=== PATIENT | female | born 1965 | race Caucasian/White ===

== ENCOUNTER 2017-05-14 18:41 | Emergency (ER) | payer MEDICAID ==
[~2017-05-14] VITALS: Ht 157.5 cm; Wt 68.0 kg
[2017-05-14 19:25] VITALS: BP 154/95
[2017-05-14] MEDS ORDERED: methylPREDNISolone SOD SUCC 125 MG/2 ML VL IM ONE (22:15)
[2017-05-14] MEDS ORDERED: KETOROLAC TROMETH 60MG/2ML VIAL IM ONE (22:15)
[2017-05-14] MEDS ORDERED: methylPREDNISolone SOD SUCC 125 MG/2 ML VL ONE (22:19)
== END 2017-05-14 23:00 | disposition home or self-care (01) ==
LOC: ER 19:00
DX: M54.16 Radiculopathy, lumbar region (principal); M79.1 Myalgia; F17.210 Nicotine dependence, cigarettes, uncomplicated; Z90.49 Acquired absence of other specified parts of digestive tract
CPT/HCPCS: 96372; 99284; J1885; J2930

== ENCOUNTER 2021-03-02 13:44 | Inpatient (IN) | payer MEDICAID ==
[~2021-03-02] VITALS: Ht 157.5 cm; Wt 89.6 kg
[2021-03-02 14:48] LABS: Basophils # (auto) 0.1 10 ^3/uL (0-0.2); Basophils % (auto) 0.9 % (0.0-2.0); Eosinophils # (auto) 0 10 ^3/uL (0-0.8); Eosinophils % (auto) 0.1 % (0.0-7.0); Hematocrit 49.3 % (36.0-46.0); Hemoglobin 16.7 g/dL (12.2-16.2); Lymphocytes # (auto) 1.8 10 ^3/uL (0.4-5.4); Lymphocytes % (auto) 12.2 % (10.0-50.0); Mean Corpuscular Hemoglobin 29.7 pg (28.0-32.0); Mean Corpuscular Hgb Conc. 33.8 g/dL (32.0-36.0); Mean Corpuscular Volume 87.8 fL (80.0-100.0); Monocytes # (auto) 1.7 10 ^3/uL (0-1.3); Monocytes % (auto) 11.5 % (0.0-12.0); Neutrophils # (auto) 11.3 10 ^3/uL (1.6-8.6); Neutrophils % (auto) 75.3 % (37.0-80.0); Nucleated Red Blood Cells % 0.1 %; Red Blood Cells 5.62 10^6/uL (4.0-5.20); Red Cell Distribution Width 14.7 % (11.8-14.3)
[2021-03-02 15:06] LABS: Anion Gap 9 (5-15); Blood Urea Nitrogen 24 mg/dL (7-18); Calcium 9.4 mg/dL (8.5-10.1); Carbon Dioxide 27 mmol/L (21-32); Chloride 100 mmol/L (98-107); Glucose 100 mg/dL (74-106); Potassium 3.5 mmol/L (3.5-5.1); Sodium 136 mmol/L (136-145)
[2021-03-02 15:13] LABS: Alanine Aminotransferase 19 U/L (13-56); Alkaline Phosphatase 130 U/L (45-117); Aspartate Aminotransferase 18 U/L (15-37); BUN/Creatinine Ratio 19.5; GFR African American 58 mL/min; GFR Non-African American 48 mL/min; Total Protein 8.9 g/dL (6.4-8.2)
[2021-03-02] MEDS ORDERED: SODIUM CHLORIDE 0.9% 1,000 ML IV ONE ×2 (17:30)
[2021-03-02] MEDS ORDERED: cefTRIAXone 1GM/50ML D5W 50 ML IV ONE (18:00)
[2021-03-02] MEDS ORDERED: metroNIDAZOLE 500MG/100ML 100 ML IV ONE (18:00)
[2021-03-02] MEDS ORDERED: MORPHINE SULFATE INJECTION 2 MG/ML SYRG IV PRN (18:15)
[2021-03-02] MEDS ORDERED: hydrALAZINE HCL 20 MG/ML VL IV PRN (18:15)
[2021-03-02] MEDS ORDERED: NITROGLYCERIN 0.4 MG SL TAB SL PRN (18:15)
[2021-03-02] MEDS: metroNIDAZOLE 500MG/100ML 100 ML IV SCH (22:00)
[2021-03-02] MEDS: HYDROmorphone HCL 2 MG/ML VL IV PRN (22:12)
[2021-03-02] MEDS: ONDANSETRON HCL 4 MG/2 ML VIAL IV PRN (22:12)
[2021-03-02] MEDS: D5W/ SOD CHL 0.9%/KCL 20MEQ 1,000 ML IV SCH (22:27)
[2021-03-03] MEDS: D5W/ SOD CHL 0.9%/KCL 20MEQ 1,000 ML IV SCH ×3 (02:35→20:46)
[2021-03-03 04:25] LABS: Basophils # (auto) 0.1 10 ^3/uL (0-0.2); Basophils % (auto) 0.5 % (0.0-2.0); Eosinophils # (auto) 0.2 10 ^3/uL (0-0.8); Eosinophils % (auto) 1.9 % (0.0-7.0); Hematocrit 47.2 % (36.0-46.0); Hemoglobin 15.6 g/dL (12.2-16.2); Lymphocytes # (auto) 3.1 10 ^3/uL (0.4-5.4); Lymphocytes % (auto) 23.9 % (10.0-50.0); Mean Corpuscular Hemoglobin 29.3 pg (28.0-32.0); Mean Corpuscular Volume 88.9 fL (80.0-100.0); Monocytes # (auto) 1.5 10 ^3/uL (0-1.3); Monocytes % (auto) 11.5 % (0.0-12.0); Neutrophils % (auto) 62.2 % (37.0-80.0); Red Blood Cells 5.31 10^6/uL (4.0-5.20); White Blood Cell 12.9 10^3/uL (4.4-10.8)
[2021-03-03 04:39] LABS: INR 1.06 (0.9-1.15); Partial Thromboplastin Time 28.4 sec (23.6-33.0)
[2021-03-03 04:45] LABS: Albumin 3.3 g/dL (3.4-5.0); Calcium 8.3 mg/dL (8.5-10.1); Potassium 3.6 mmol/L (3.5-5.1)
[2021-03-03 04:48] LABS: Bilirubin, Total 0.7 mg/dL (0.2-1.0); Total Protein 7.6 g/dL (6.4-8.2)
[2021-03-03] MEDS: metroNIDAZOLE 500MG/100ML 100 ML IV SCH ×3 (05:47→21:13)
[2021-03-03 06:22] LABS: Urine Bacteria NONE SEEN /hpf (None Seen); Urine Blood 1+ /uL (Negative); Urine Mucus FEW (None Seen); Urine Specific Gravity 1.029 (1.001-1.035); Urine WBC 637 /hpf (0 - 5); Urine WBC Clumps PRESENT /hpf (None Seen)
[2021-03-03 06:42] LABS: Amphetamine Screen, Urine NEGATIVE (NEGATIVE); Barbiturate Scree,Urine NEGATIVE (NEGATIVE); Benzodiazephine Screen, Urine NEGATIVE (NEGATIVE); Cannabinoid Screen, Urine POSITIVE (NEGATIVE); Cocaine Screen, Urine NEGATIVE (NEGATIVE); Opiate Scree,Urine NEGATIVE (NEGATIVE); Phencyclidine Screen, Urine NEGATIVE (NEGATIVE)
[2021-03-03] MEDS ORDERED: FLEET ENEMA(ADULT) 135 ML PR ONE (10:00)
[2021-03-03] MEDS: cefTRIAXone 1GM/50ML D5W 50 ML IV SCH (10:18)
[2021-03-03] MEDS: FAMOTIDINE (10MG/ML) 2ML VL IV SCH (10:18)
[2021-03-03] MEDS ORDERED: diphenhdrAMINE HCL 50 MG/1 ML VL ONE (10:25)
[2021-03-03] MEDS ORDERED: SODIUM CHLORIDE LOCK 10 ML ONE (10:25)
[2021-03-03] MEDS: fentaNYL CITRATE 100 MCG/2 ML VL ONE ×2 (11:15→11:28)
[2021-03-03] MEDS: MIDAZOLAM HCL 5 MG/ML-1ML VIAL ONE ×2 (11:15→11:28)
[2021-03-03] MEDS ORDERED: METH750T22 PO (13:39)
[2021-03-03] MEDS: HYDROmorphone HCL 2 MG/ML VL IV PRN (13:39)
[2021-03-03] MEDS: ONDANSETRON HCL 4 MG/2 ML VIAL IV PRN (13:39)
[2021-03-03] MEDS ORDERED: DICY10CA12 PO (13:39)
[2021-03-03] MEDS ORDERED: HYDR-4072 PO (13:39)
[2021-03-03] MEDS ORDERED: GAB100C PO (13:39)
[2021-03-03] MEDS ORDERED: LIQUID POLIBAR PLUS 105% (BARIUM SULF) 1900ML ONE (16:04)
[2021-03-03 20:00] VITALS: BP 113/67
[2021-03-03 22:00] VITALS: BP 113/67
[2021-03-03] MEDS: METHOCARBAMOL 500 MG TAB PO PRN (22:24)
[2021-03-04 05:00] VITALS: BP 117/62
[2021-03-04] MEDS: metroNIDAZOLE 500MG/100ML 100 ML IV SCH ×3 (06:00→22:31)
[2021-03-04] MEDS: D5W/ SOD CHL 0.9%/KCL 20MEQ 1,000 ML IV SCH ×3 (06:00→20:15)
[2021-03-04 08:00] VITALS: BP 117/76
[2021-03-04 08:52] LABS: Basophils # (auto) 0.1 10 ^3/uL (0-0.2); Basophils % (auto) 0.8 % (0.0-2.0); Eosinophils # (auto) 0.2 10 ^3/uL (0-0.8); Eosinophils % (auto) 2.3 % (0.0-7.0); Hemoglobin 13.7 g/dL (12.2-16.2); Lymphocytes # (auto) 2.2 10 ^3/uL (0.4-5.4); Lymphocytes % (auto) 24.8 % (10.0-50.0); Mean Corpuscular Hemoglobin 29.9 pg (28.0-32.0); Mean Corpuscular Hgb Conc. 33.5 g/dL (32.0-36.0); Mean Corpuscular Volume 89.2 fL (80.0-100.0); Monocytes # (auto) 0.8 10 ^3/uL (0-1.3); Monocytes % (auto) 9.8 % (0.0-12.0); Neutrophils # (auto) 5.4 10 ^3/uL (1.6-8.6); Neutrophils % (auto) 62.3 % (37.0-80.0); Nucleated Red Blood Cells % 0.1 %; Red Cell Distribution Width 14.5 % (11.8-14.3); White Blood Cell 8.7 10^3/uL (4.4-10.8)
[2021-03-04 09:00] VITALS: BP 117/76
[2021-03-04 09:02] LABS: INR 1.1 (0.9-1.15); Partial Thromboplastin Time 28.2 sec (23.6-33.0)
[2021-03-04 09:11] LABS: BUN/Creatinine Ratio 16.7; Calcium 8.3 mg/dL (8.5-10.1); Potassium 3.9 mmol/L (3.5-5.1)
[2021-03-04] MEDS ORDERED: CEPH-322 PO (10:10)
[2021-03-04] MEDS ORDERED: METR500T PO (10:10)
[2021-03-04] MEDS: HYDROmorphone HCL 2 MG/ML VL IV PRN ×3 (10:12→22:32)
[2021-03-04] MEDS: cefTRIAXone 1GM/50ML D5W 50 ML IV SCH (10:12)
[2021-03-04] MEDS: FAMOTIDINE (10MG/ML) 2ML VL IV SCH (10:12)
[2021-03-04] MEDS ORDERED: GOLYTELY 4L KIT PO ONE (12:00)
[2021-03-04] MEDS: ONDANSETRON HCL 4 MG/2 ML VIAL IV PRN (14:01)
[2021-03-04 17:08] VITALS: BP 101/49
[2021-03-04 22:00] VITALS: BP 148/85
[2021-03-05] MEDS: D5W/ SOD CHL 0.9%/KCL 20MEQ 1,000 ML IV SCH (04:54)
[2021-03-05 05:00] VITALS: BP 127/85
[2021-03-05] MEDS: HYDROmorphone HCL 2 MG/ML VL IV PRN ×4 (05:18→22:31)
[2021-03-05] MEDS: metroNIDAZOLE 500MG/100ML 100 ML IV SCH ×3 (05:33→21:16)
[2021-03-05 08:00] VITALS: BP 129/80
[2021-03-05 08:56] VITALS: BP 129/80
[2021-03-05] MEDS: FAMOTIDINE (10MG/ML) 2ML VL IV SCH (09:42)
[2021-03-05] MEDS: cefTRIAXone 1GM/50ML D5W 50 ML IV SCH (09:42)
[2021-03-05 12:42] VITALS: BP 123/77
[2021-03-05] MEDS: ONDANSETRON HCL 4 MG/2 ML VIAL IV PRN ×3 (14:52→22:31)
[2021-03-05 17:10] VITALS: BP 111/58
[2021-03-05 22:00] VITALS: BP 144/85
[2021-03-06] MEDS: ONDANSETRON HCL 4 MG/2 ML VIAL IV PRN ×4 (02:19→21:36)
[2021-03-06] MEDS: HYDROmorphone HCL 2 MG/ML VL IV PRN ×4 (02:19→21:36)
[2021-03-06 05:00] VITALS: BP 124/74
[2021-03-06] MEDS: metroNIDAZOLE 500MG/100ML 100 ML IV SCH ×3 (06:44→21:36)
[2021-03-06 09:00] VITALS: BP_SYST 104; BP_SYST 125; BP_DIAS 47; BP_DIAS 60
[2021-03-06] MEDS: cefTRIAXone 1GM/50ML D5W 50 ML IV SCH (09:13)
[2021-03-06] MEDS: FAMOTIDINE (10MG/ML) 2ML VL IV SCH (09:14)
[2021-03-06] MEDS ORDERED: MIDAZOLAM HCL 5 MG/ML-1ML VIAL ONE (11:59)
[2021-03-06] MEDS ORDERED: diphenhdrAMINE HCL 50 MG/1 ML VL ONE (11:59)
[2021-03-06] MEDS ORDERED: fentaNYL CITRATE 100 MCG/2 ML VL ONE (11:59)
[2021-03-06 13:00] VITALS: BP 142/77
[2021-03-06] MEDS ORDERED: SIMETHICONE 40 MG/0.6 ML ORAL DROP ONE (15:37)
[2021-03-06 17:00] VITALS: BP 126/72
[2021-03-06 22:00] VITALS: BP 150/92
[2021-03-07] MEDS: HYDROmorphone HCL 2 MG/ML VL IV PRN ×5 (04:18→21:58)
[2021-03-07] MEDS: ONDANSETRON HCL 4 MG/2 ML VIAL IV PRN ×4 (04:19→21:59)
[2021-03-07 05:00] VITALS: BP 134/79
[2021-03-07] MEDS: metroNIDAZOLE 500MG/100ML 100 ML IV SCH ×3 (05:46→21:27)
[2021-03-07 09:00] VITALS: BP 115/65
[2021-03-07] MEDS: cefTRIAXone 1GM/50ML D5W 50 ML IV SCH (09:05)
[2021-03-07] MEDS: FAMOTIDINE (10MG/ML) 2ML VL IV SCH (09:06)
[2021-03-07 13:00] VITALS: BP 153/76
[2021-03-07 13:15] VITALS: BP 130/68
[2021-03-07 17:00] VITALS: BP 146/82
[2021-03-07 22:00] VITALS: BP 112/58
[2021-03-08] MEDS: ONDANSETRON HCL 4 MG/2 ML VIAL IV PRN ×2 (02:04→06:47)
[2021-03-08 05:00] VITALS: BP_SYST 123; BP_SYST 127; BP_DIAS 69; BP_DIAS 74
[2021-03-08] MEDS: metroNIDAZOLE 500MG/100ML 100 ML IV SCH ×3 (06:46→21:34)
[2021-03-08 06:47] LABS: Basophils # (auto) 0.1 10 ^3/uL (0-0.2); Basophils % (auto) 0.5 % (0.0-2.0); Eosinophils # (auto) 0.2 10 ^3/uL (0-0.8); Eosinophils % (auto) 1.4 % (0.0-7.0); Hematocrit 42.7 % (36.0-46.0); Hemoglobin 14.5 g/dL (12.2-16.2); Lymphocytes # (auto) 1.8 10 ^3/uL (0.4-5.4); Lymphocytes % (auto) 17.2 % (10.0-50.0); Mean Corpuscular Hemoglobin 30.2 pg (28.0-32.0); Mean Corpuscular Hgb Conc. 34.1 g/dL (32.0-36.0); Mean Corpuscular Volume 88.8 fL (80.0-100.0); Monocytes # (auto) 0.8 10 ^3/uL (0-1.3); Neutrophils # (auto) 7.9 10 ^3/uL (1.6-8.6); Neutrophils % (auto) 73.9 % (37.0-80.0); Red Blood Cells 4.81 10^6/uL (4.0-5.20); Red Cell Distribution Width 14.5 % (11.8-14.3); White Blood Cell 10.7 10^3/uL (4.4-10.8)
[2021-03-08] MEDS: HYDROmorphone HCL 2 MG/ML VL IV PRN ×5 (06:47→21:36)
[2021-03-08 07:01] LABS: INR 1.21 (0.9-1.15); Partial Thromboplastin Time 28.9 sec (23.6-33.0)
[2021-03-08 07:13] LABS: Albumin 2.9 g/dL (3.4-5.0); BUN/Creatinine Ratio 9.4; Potassium 3.1 mmol/L (3.5-5.1)
[2021-03-08 07:16] LABS: Bilirubin, Total 0.5 mg/dL (0.2-1.0); Total Protein 6.4 g/dL (6.4-8.2)
[2021-03-08 09:00] VITALS: BP 118/69
[2021-03-08] MEDS: cefTRIAXone 1GM/50ML D5W 50 ML IV SCH (09:00)
[2021-03-08] MEDS: FAMOTIDINE (10MG/ML) 2ML VL IV SCH (10:00)
[2021-03-08] MEDS ORDERED: HYDROmorphone HCL 2 MG/ML VL ONE (11:02)
[2021-03-08] MEDS ORDERED: fentaNYL CITRATE 100 MCG/2 ML VL ONE ×2 (11:02→12:07)
[2021-03-08] MEDS ORDERED: MIDAZOLAM HCL 2MG/2ML 2ml VIAL (1mg/ml) ONE (11:02)
[2021-03-08] MEDS ORDERED: GLYCOPYRROLATE 0.2 MG/ML 1ML VIAL ONE (11:03)
[2021-03-08] MEDS ORDERED: DexAMETHasone SOD PHOS 10MG/1ML VIAL INJ ONE (11:03)
[2021-03-08] MEDS ORDERED: ONDANSETRON HCL 4 MG/2 ML VIAL ONE (11:03)
[2021-03-08] MEDS ORDERED: NEOSTIGMINE 1 MG/ML INJ (10mg/10ML VIAL) ONE (11:03)
[2021-03-08] MEDS ORDERED: SODIUM CHLORIDE LOCK 10 ML ONE (11:03)
[2021-03-08] MEDS ORDERED: PROPOFOL 10 MG/ML 20 ML IV ONE (11:03)
[2021-03-08] MEDS ORDERED: ROCURONIUM 10MG/ML 10ML VIAL IV ONE (11:03)
[2021-03-08] MEDS ORDERED: LIDOCAINE W/ EPINEPHRINE 1% 20ML VIAL ONE (11:20)
[2021-03-08] MEDS ORDERED: BUPIVACAINE 0.25% INJ 50ML VIAL ONE (11:20)
[2021-03-08] MEDS ORDERED: METOCLOPRAMIDE HCL 5MG/ml INJ 2ml VIAL IV PRN (13:15)
[2021-03-08] MEDS ORDERED: MORPHINE SULFATE 4 MG/ML SYR/VIAL IV PRN (13:15)
[2021-03-08] MEDS ORDERED: POVIDONE IODINE 10 % TOPICAL OINT 30GM TOP ONE (13:32)
[2021-03-08] MEDS ORDERED: POTASSIUM CHLORIDE 40 MEQ, LIDOCAINE 1% (LOCAL ANESTH.) 4 ML in SODIUM CHL 0.9% 250 ML IV ONE (14:00)
[2021-03-08] MEDS: D5W/SOD CHL 0.45%/KCL 20MEQ 1,000 ML IV SCH (14:00)
[2021-03-08 16:59] VITALS: BP_SYST 124; BP_SYST 131; BP_DIAS 78
[2021-03-08] MEDS ORDERED: TPN PER PHARMACY 0 ML IV SCH (17:30)
[2021-03-08 20:00] VITALS: BP 118/72
[2021-03-08] MEDS: AMINO ACID INFUSION IN D10W 1,000 ML IV NR (21:34)
[2021-03-08 22:00] VITALS: BP 118/72
[2021-03-09] MEDS: HYDROmorphone HCL 2 MG/ML VL IV PRN ×7 (01:49→23:07)
[2021-03-09] MEDS: ONDANSETRON HCL 4 MG/2 ML VIAL IV PRN ×5 (01:49→19:56)
[2021-03-09 05:00] VITALS: BP 132/86
[2021-03-09] MEDS: metroNIDAZOLE 500MG/100ML 100 ML IV SCH ×3 (05:59→21:40)
[2021-03-09 07:09] LABS: Basophils # (auto) 0 10 ^3/uL (0-0.2); Basophils % (auto) 0.1 % (0.0-2.0); Eosinophils # (auto) 0 10 ^3/uL (0-0.8); Eosinophils % (auto) 0.2 % (0.0-7.0); Hematocrit 47.5 % (36.0-46.0); Hemoglobin 15.8 g/dL (12.2-16.2); Lymphocytes # (auto) 1.6 10 ^3/uL (0.4-5.4); Lymphocytes % (auto) 9.8 % (10.0-50.0); Mean Corpuscular Hemoglobin 30.5 pg (28.0-32.0); Mean Corpuscular Hgb Conc. 33.3 g/dL (32.0-36.0); Mean Corpuscular Volume 91.8 fL (80.0-100.0); Monocytes # (auto) 1.6 10 ^3/uL (0-1.3); Monocytes % (auto) 9.8 % (0.0-12.0); Neutrophils # (auto) 13.2 10 ^3/uL (1.6-8.6); Neutrophils % (auto) 80.1 % (37.0-80.0); Red Blood Cells 5.18 10^6/uL (4.0-5.20); Red Cell Distribution Width 14.8 % (11.8-14.3); White Blood Cell 16.4 10^3/uL (4.4-10.8)
[2021-03-09 07:20] LABS: Potassium 3.9 mmol/L (3.5-5.1)
[2021-03-09 07:29] LABS: Albumin 2.3 g/dL (3.4-5.0); BUN/Creatinine Ratio 8.8; Bilirubin, Total 0.5 mg/dL (0.2-1.0); Calcium 7.9 mg/dL (8.5-10.1); Magnesium 2.1 mg/dL (1.6-2.6); Phosphorus 1.9 mg/dL (2.5-4.90); Total Protein 5.5 g/dL (6.4-8.2)
[2021-03-09 09:00] VITALS: BP 162/92
[2021-03-09 09:07] LABS: Pre Albumin 10.5 mg/dL (20.0-40.0)
[2021-03-09] MEDS ORDERED: SODIUM PHOSP 40 MEQ in D5W 5% 250 ML IV ONE (09:30)
[2021-03-09] MEDS: cefTRIAXone 1GM/50ML D5W 50 ML IV SCH (09:35)
[2021-03-09] MEDS: D5W/SOD CHL 0.45%/KCL 20MEQ 1,000 ML IV SCH ×3 (09:35→15:13)
[2021-03-09] MEDS: FAMOTIDINE (10MG/ML) 2ML VL IV SCH (09:35)
[2021-03-09] MEDS ORDERED: DEXTROSE (50%) 50ML SYRG IV SCH (12:00)
[2021-03-09] MEDS: ACCU-CHEK COMFORT CURVE STRIP VI SCH ×2 (12:31→17:44)
[2021-03-09] MEDS: InsuLIN REG 1unit/0.01ml Soln (100units/ml) SC SCH ×2 (12:31→17:46)
[2021-03-09 13:00] VITALS: BP 145/93
[2021-03-09 16:48] VITALS: BP 122/89
[2021-03-09] MEDS: AMINO ACID INFUSION IN D10W 1,000 ML IV NR (19:49)
[2021-03-09 20:00] VITALS: BP 137/80
[2021-03-09] MEDS ORDERED: PPN PER PHARMACY IV NR ×10 (20:00)
[2021-03-09 22:00] VITALS: BP 137/80
[2021-03-10] MEDS: ONDANSETRON HCL 4 MG/2 ML VIAL IV PRN ×5 (01:34→19:48)
[2021-03-10] MEDS: HYDROmorphone HCL 2 MG/ML VL IV PRN ×5 (02:38→19:48)
[2021-03-10 05:00] VITALS: BP 140/87
[2021-03-10] MEDS: InsuLIN REG 1unit/0.01ml Soln (100units/ml) SC SCH ×4 (06:00→18:00)
[2021-03-10] MEDS: ACCU-CHEK COMFORT CURVE STRIP VI SCH ×4 (06:01→18:00)
[2021-03-10] MEDS: metroNIDAZOLE 500MG/100ML 100 ML IV SCH ×2 (06:01→16:28)
[2021-03-10 06:41] LABS: Albumin 2.1 g/dL (3.4-5.0); Calcium 7.9 mg/dL (8.5-10.1); Magnesium 2.3 mg/dL (1.6-2.6); Potassium 3.2 mmol/L (3.5-5.1)
[2021-03-10 06:44] LABS: BUN/Creatinine Ratio 18.9; Bilirubin, Total 0.6 mg/dL (0.2-1.0); Phosphorus 2.4 mg/dL (2.5-4.90); Total Protein 5.6 g/dL (6.4-8.2)
[2021-03-10] MEDS: D5W/SOD CHL 0.45%/KCL 20MEQ 1,000 ML IV SCH (07:46)
[2021-03-10 07:52] LABS: Basophils # (auto) 0 10 ^3/uL (0-0.2); Basophils % (auto) 0.2 % (0.0-2.0); Eosinophils # (auto) 0.1 10 ^3/uL (0-0.8); Eosinophils % (auto) 0.3 % (0.0-7.0); Hematocrit 43.6 % (36.0-46.0); Hemoglobin 14.5 g/dL (12.2-16.2); Lymphocytes # (auto) 1.9 10 ^3/uL (0.4-5.4); Lymphocytes % (auto) 9.8 % (10.0-50.0); Mean Corpuscular Hemoglobin 29.6 pg (28.0-32.0); Mean Corpuscular Hgb Conc. 33.3 g/dL (32.0-36.0); Monocytes # (auto) 1.8 10 ^3/uL (0-1.3); Monocytes % (auto) 9.4 % (0.0-12.0); Neutrophils # (auto) 15.8 10 ^3/uL (1.6-8.6); Neutrophils % (auto) 80.3 % (37.0-80.0); Red Cell Distribution Width 14.6 % (11.8-14.3); White Blood Cell 19.7 10^3/uL (4.4-10.8)
[2021-03-10 09:00] VITALS: BP 121/89
[2021-03-10] MEDS: FAMOTIDINE (10MG/ML) 2ML VL IV SCH (10:00)
[2021-03-10] MEDS: cefTRIAXone 1GM/50ML D5W 50 ML IV SCH (10:29)
[2021-03-10] MEDS: ENOXAPARIN SOD 40 MG/0.4 ML SYRINGE SC SCH (10:30)
[2021-03-10] MEDS ORDERED: POTASSIUM PHOSP 26.4MEQ(18MMOL) IN NS 100 ML IV ONE (11:30)
[2021-03-10 13:00] VITALS: BP 121/88
[2021-03-10 16:39] VITALS: BP 130/84
[2021-03-10] MEDS ORDERED: PPN PER PHARMACY IV NR ×11 (20:00)
[2021-03-10 22:00] VITALS: BP 158/95
[2021-03-11] MEDS: HYDROmorphone HCL 2 MG/ML VL IV PRN ×7 (00:39→23:25)
[2021-03-11] MEDS: metroNIDAZOLE 500MG/100ML 100 ML IV SCH ×4 (00:39→21:58)
[2021-03-11 05:00] VITALS: BP 123/73
[2021-03-11 05:20] LABS: Potassium 3.5 mmol/L (3.5-5.1)
[2021-03-11 05:24] LABS: Albumin 1.9 g/dL (3.4-5.0); BUN/Creatinine Ratio 23.6; Calcium 7.7 mg/dL (8.5-10.1); Magnesium 2.2 mg/dL (1.6-2.6)
[2021-03-11 05:28] LABS: Bilirubin, Total 0.4 mg/dL (0.2-1.0); Phosphorus 2.7 mg/dL (2.5-4.90); Total Protein 5.6 g/dL (6.4-8.2)
[2021-03-11] MEDS: D5W/SOD CHL 0.45%/KCL 20MEQ 1,000 ML IV SCH ×2 (05:39→16:30)
[2021-03-11] MEDS: InsuLIN REG 1unit/0.01ml Soln (100units/ml) SC SCH ×4 (06:00→18:00)
[2021-03-11] MEDS: ACCU-CHEK COMFORT CURVE STRIP VI SCH ×4 (06:07→18:10)
[2021-03-11 09:00] VITALS: BP 106/71
[2021-03-11] MEDS: ONDANSETRON HCL 4 MG/2 ML VIAL IV PRN ×3 (10:49→23:25)
[2021-03-11] MEDS: FAMOTIDINE (10MG/ML) 2ML VL IV SCH (10:49)
[2021-03-11] MEDS: cefTRIAXone 1GM/50ML D5W 50 ML IV SCH (10:54)
[2021-03-11] MEDS: ENOXAPARIN SOD 40 MG/0.4 ML SYRINGE SC SCH (10:55)
[2021-03-11 12:35] VITALS: BP 147/73
[2021-03-11 16:39] VITALS: BP 149/83
[2021-03-11 20:00] VITALS: BP 151/85
[2021-03-11] MEDS: POTASSIUM CHLORIDE IV NR ×22 (20:00→21:57)
[2021-03-11] MEDS: [UNRECOGNIZED DRUG - OTHER] IV NR ×22 (20:00→21:57)
[2021-03-11] MEDS: SODIUM CHLORIDE IV NR ×22 (20:00→21:57)
[2021-03-11] MEDS: FAT EMULSION IV NR ×22 (20:00→21:57)
[2021-03-11 22:00] VITALS: BP 151/85
[2021-03-12] MEDS: HYDROmorphone HCL 2 MG/ML VL IV PRN ×7 (02:26→23:17)
[2021-03-12 04:56] VITALS: BP 129/59
[2021-03-12] MEDS: metroNIDAZOLE 500MG/100ML 100 ML IV SCH ×3 (05:16→22:31)
[2021-03-12] MEDS: ONDANSETRON HCL 4 MG/2 ML VIAL IV PRN ×4 (05:36→23:18)
[2021-03-12] MEDS: ACCU-CHEK COMFORT CURVE STRIP VI SCH ×4 (05:58→18:53)
[2021-03-12] MEDS: InsuLIN REG 1unit/0.01ml Soln (100units/ml) SC SCH ×4 (05:59→18:00)
[2021-03-12 06:25] LABS: Potassium 3.6 mmol/L (3.5-5.1)
[2021-03-12 06:31] LABS: BUN/Creatinine Ratio 25.5; Calcium 7.8 mg/dL (8.5-10.1); Total Protein 5.7 g/dL (6.4-8.2)
[2021-03-12 06:42] LABS: Bilirubin, Total 0.4 mg/dL (0.2-1.0); Magnesium 2.3 mg/dL (1.6-2.6); Phosphorus 3.3 mg/dL (2.5-4.90)
[2021-03-12 09:00] VITALS: BP 116/79
[2021-03-12] MEDS: cefTRIAXone 1GM/50ML D5W 50 ML IV SCH (09:00)
[2021-03-12] MEDS: D5W/SOD CHL 0.45%/KCL 20MEQ 1,000 ML IV SCH (09:00)
[2021-03-12] MEDS: FAMOTIDINE (10MG/ML) 2ML VL IV SCH (09:01)
[2021-03-12] MEDS: ENOXAPARIN SOD 40 MG/0.4 ML SYRINGE SC SCH (09:01)
[2021-03-12] MEDS ORDERED: D5W/SOD CHL 0.45%/KCL 20MEQ 1,000 ML IV SCH ×2 (10:15→20:00)
[2021-03-12] MEDS: POTASSIUM CHL 20MEQ/100ML 100 ML IV SCH ×2 (12:13→17:59)
[2021-03-12 13:00] VITALS: BP 149/97
[2021-03-12 17:00] VITALS: BP 117/72
[2021-03-12 20:00] VITALS: BP 118/70
[2021-03-12] MEDS ORDERED: PPN PER PHARMACY IV NR ×12 (20:00)
[2021-03-12 22:00] VITALS: BP 118/70
[2021-03-13] MEDS: METHOCARBAMOL 500 MG TAB PO PRN ×2 (01:07→22:14)
[2021-03-13 05:00] VITALS: BP 107/60
[2021-03-13 05:28] LABS: Alanine Aminotransferase 22 U/L (13-56); Albumin 2.1 g/dL (3.4-5.0); Anion Gap 4 (5-15); Aspartate Aminotransferase 32 U/L (15-37); BUN/Creatinine Ratio 18.5; Blood Urea Nitrogen 10 mg/dL (7-18); Calcium 8.1 mg/dL (8.5-10.1); Carbon Dioxide 26 mmol/L (21-32); Chloride 107 mmol/L (98-107); GFR African American 150 mL/min; GFR Non-African American 124 mL/min; Glucose 106 mg/dL (74-106); Magnesium 2.3 mg/dL (1.6-2.6); Potassium 4.2 mmol/L (3.5-5.1); Sodium 137 mmol/L (136-145)
[2021-03-13] MEDS: HYDROmorphone HCL 2 MG/ML VL IV PRN ×5 (05:29→23:54)
[2021-03-13] MEDS: metroNIDAZOLE 500MG/100ML 100 ML IV SCH (05:30)
[2021-03-13 05:40] LABS: Alkaline Phosphatase 53 U/L (45-117); Bilirubin, Total 0.4 mg/dL (0.2-1.0); Phosphorus 2.7 mg/dL (2.5-4.90); Total Protein 6.1 g/dL (6.4-8.2)
[2021-03-13] MEDS: ACCU-CHEK COMFORT CURVE STRIP VI SCH ×5 (05:48→23:58)
[2021-03-13] MEDS: InsuLIN REG 1unit/0.01ml Soln (100units/ml) SC SCH ×5 (05:49→23:59)
[2021-03-13] MEDS: ONDANSETRON HCL 4 MG/2 ML VIAL IV PRN ×4 (05:50→23:54)
[2021-03-13 09:00] VITALS: BP 119/73
[2021-03-13] MEDS: FAMOTIDINE (10MG/ML) 2ML VL IV SCH (10:12)
[2021-03-13] MEDS: cefTRIAXone 1GM/50ML D5W 50 ML IV SCH (10:12)
[2021-03-13] MEDS: ENOXAPARIN SOD 40 MG/0.4 ML SYRINGE SC SCH (10:13)
[2021-03-13 13:00] VITALS: BP 117/66
[2021-03-13 17:05] VITALS: BP 96/57
[2021-03-13] MEDS: PPN PER PHARMACY IV NR ×20 (20:00→20:10)
[2021-03-13 23:01] VITALS: BP 136/69
[2021-03-14] MEDS: HYDROmorphone HCL 2 MG/ML VL IV PRN ×3 (04:14→21:33)
[2021-03-14] MEDS: ONDANSETRON HCL 4 MG/2 ML VIAL IV PRN ×3 (04:14→21:33)
[2021-03-14 05:08] VITALS: BP 114/66
[2021-03-14] MEDS: InsuLIN REG 1unit/0.01ml Soln (100units/ml) SC SCH (06:00)
[2021-03-14] MEDS: ACCU-CHEK COMFORT CURVE STRIP VI SCH (06:01)
[2021-03-14 06:22] LABS: Albumin 1.7 g/dL (3.4-5.0); Calcium 8.1 mg/dL (8.5-10.1); Chloride 107 mmol/L (98-107); Glucose 88 mg/dL (74-106); Potassium 3.9 mmol/L (3.5-5.1); Sodium 136 mmol/L (136-145)
[2021-03-14 06:25] LABS: Alanine Aminotransferase 24 U/L (13-56); Anion Gap 8 (5-15); Aspartate Aminotransferase 21 U/L (15-37); BUN/Creatinine Ratio 14.5; Blood Urea Nitrogen 8 mg/dL (7-18); Carbon Dioxide 21 mmol/L (21-32); GFR African American 147 mL/min; GFR Non-African American 122 mL/min; Magnesium 2.4 mg/dL (1.6-2.6)
[2021-03-14 06:28] LABS: Alkaline Phosphatase 57 U/L (45-117); Bilirubin, Total 0.4 mg/dL (0.2-1.0); Phosphorus 3.8 mg/dL (2.5-4.90)
[2021-03-14 08:58] VITALS: BP 133/93
[2021-03-14] MEDS: FAMOTIDINE (10MG/ML) 2ML VL IV SCH (09:28)
[2021-03-14] MEDS: ENOXAPARIN SOD 40 MG/0.4 ML SYRINGE SC SCH (09:29)
[2021-03-14] MEDS: METHOCARBAMOL 500 MG TAB PO PRN ×2 (12:41→21:33)
[2021-03-14 13:00] VITALS: BP 149/89
[2021-03-14 16:58] VITALS: BP 109/67
[2021-03-14 22:00] VITALS: BP 135/70
[2021-03-15] MEDS: ONDANSETRON HCL 4 MG/2 ML VIAL IV PRN (03:15)
[2021-03-15] MEDS: HYDROmorphone HCL 2 MG/ML VL IV PRN ×3 (03:16→17:37)
[2021-03-15 05:00] VITALS: BP 124/79
[2021-03-15 07:29] LABS: Basophils # (auto) 0.1 10 ^3/uL (0-0.2); Basophils % (auto) 0.6 % (0.0-2.0); Eosinophils # (auto) 0.5 10 ^3/uL (0-0.8); Eosinophils % (auto) 5.5 % (0.0-7.0); Hematocrit 37.1 % (36.0-46.0); Hemoglobin 12.5 g/dL (12.2-16.2); Lymphocytes # (auto) 2.2 10 ^3/uL (0.4-5.4); Lymphocytes % (auto) 24.6 % (10.0-50.0); Mean Corpuscular Hemoglobin 29.8 pg (28.0-32.0); Mean Corpuscular Hgb Conc. 33.6 g/dL (32.0-36.0); Mean Corpuscular Volume 88.6 fL (80.0-100.0); Monocytes % (auto) 11.4 % (0.0-12.0); Neutrophils # (auto) 5.2 10 ^3/uL (1.6-8.6); Neutrophils % (auto) 57.9 % (37.0-80.0); Nucleated Red Blood Cells % 0.1 %; Red Blood Cells 4.19 10^6/uL (4.0-5.20); Red Cell Distribution Width 14.7 % (11.8-14.3)
[2021-03-15 09:00] VITALS: BP 122/72
[2021-03-15] MEDS: FAMOTIDINE (10MG/ML) 2ML VL IV SCH (09:47)
[2021-03-15] MEDS: ENOXAPARIN SOD 40 MG/0.4 ML SYRINGE SC SCH (09:47)
[2021-03-15] MEDS: METHOCARBAMOL 500 MG TAB PO PRN (09:48)
[2021-03-15 13:00] VITALS: BP 130/79
[2021-03-15 17:00] VITALS: BP 104/57
[2021-03-15 18:54] VITALS: BP 104/57
== END 2021-03-15 20:25 | disposition home health service (06) | DRG 231 ==
LOC: ER 13:44 → EDBD 13:44 → TELE 18:14 → TELE-CENTR 03-03 18:35 → CENTRAL 03-04 16:19
PROVIDERS: ADMIT Hospitalist; ATTEND Hospitalist
PROC: 0DBN8ZX Excision of Sigmoid Colon, Via Natural or Artificial Opening Endoscopic, Diagnostic (ICD-10-PCS; principal; 2021-03-03 11:10)
PROC: 0DJD8ZZ Inspection of Lower Intestinal Tract, Via Natural or Artificial Opening Endoscopic (ICD-10-PCS; 2021-03-06)
PROC: 0D1M0Z4 Bypass Descending Colon to Cutaneous, Open Approach (ICD-10-PCS; 2021-03-08)
PROC: 0DBP0ZZ Excision of Rectum, Open Approach (ICD-10-PCS; 2021-03-08)
PROC: 3E0336Z Introduction of Nutritional Substance into Peripheral Vein, Percutaneous Approach (ICD-10-PCS; 2021-03-09)
DX: K56.699 Other intestinal obstruction unspecified as to partial versus complete obstruction (principal); N17.9 Acute kidney failure, unspecified; R65.10 Systemic inflammatory response syndrome (SIRS) of non-infectious origin without acute organ dysfunction; E66.9 Obesity, unspecified; K57.30 Diverticulosis of large intestine without perforation or abscess without bleeding; K52.9 Noninfective gastroenteritis and colitis, unspecified; Z20.822 Contact with and (suspected) exposure to COVID-19; G89.4 Chronic pain syndrome; Z90.49 Acquired absence of other specified parts of digestive tract; Z83.3 Family history of diabetes mellitus; Z68.34 Body mass index [BMI] 34.0-34.9, adult
CPT/HCPCS: 36415; 45378; 45380; 71045; 74176; 74280; 80048; 80053; 80307; 81001; 82040; 82378; 82962; 83605; 83735; 84100; 84478; 84484; 84702; 85025; 85610; 85730; 86850; 86900; 86901; 87040; 87086; 87426; 93005; 96365; 96368; 97110; 97116; 97530; G0378; J0696; J1100; J1815; J2001; J2250; J2405; J2704; J3480; J3490; J7060; J7131

== ENCOUNTER → 2021-12-25 | Outpatient (CLI) | payer MEDICAID ==
[~2021-12-25] VITALS: Ht 154.9 cm; Wt 102.1 kg
[~2021-12-25] MED LIST: ADENOSINE 86 MG in GIVE UN-DILUTED 0 ML IV ONE; CEPH-322 PO; DICY10CA12 PO; GAB100C PO; HYDR-4072 PO; METH750T22 PO; METR500T PO
== END | disposition home or self-care (01) ==
LOC: XYW 13:09
PROVIDERS: ATTEND Internal Medicine
DX: Z01.810 Encounter for preprocedural cardiovascular examination (principal); I50.9 Heart failure, unspecified; Z68.41 Body mass index [BMI] 40.0-44.9, adult; Z93.3 Colostomy status
CPT/HCPCS: 78452; 93017; A9500; J0153

== ENCOUNTER → 2022-01-04 | Outpatient (CLI) | payer MEDICAID ==
[~2022-01-04] MED LIST changes: -ADENOSINE 86 MG in GIVE UN-DILUTED 0 ML IV ONE
== END | disposition home or self-care (01) ==
LOC: XYW 10:56
PROVIDERS: ATTEND Internal Medicine
DX: Z01.810 Encounter for preprocedural cardiovascular examination (principal)
CPT/HCPCS: 93306

== ENCOUNTER → 2022-01-22 | Outpatient (CLI) | payer MEDICAID ==
[~2022-01-22] MED LIST changes: +GABA300C10 PO
[2022-01-22 14:12] LABS: Basophils # (auto) 0.1 10 ^3/uL (0-0.2); Basophils % (auto) 0.7 % (0.0-2.0); Eosinophils # (auto) 0.3 10 ^3/uL (0-0.8); Eosinophils % (auto) 2.7 % (0.0-7.0); Hematocrit 43.9 % (36.0-46.0); Lymphocytes # (auto) 2.6 10 ^3/uL (0.4-5.4); Lymphocytes % (auto) 26.6 % (10.0-50.0); Mean Corpuscular Hemoglobin 27.3 pg (28.0-32.0); Mean Corpuscular Hgb Conc. 31.8 g/dL (32.0-36.0); Mean Corpuscular Volume 85.6 fL (80.0-100.0); Monocytes # (auto) 0.9 10 ^3/uL (0-1.3); Monocytes % (auto) 9.5 % (0.0-12.0); Neutrophils # (auto) 5.9 10 ^3/uL (1.6-8.6); Neutrophils % (auto) 60.5 % (37.0-80.0); Nucleated Red Blood Cells % 0.1 %; Red Blood Cells 5.13 10^6/uL (4.0-5.20); Red Cell Distribution Width 15.2 % (11.8-14.3); White Blood Cell 9.7 10^3/uL (4.4-10.8)
[2022-01-22 14:22] LABS: Urine Bacteria FEW /hpf (None Seen); Urine Blood 1+ /uL (Negative); Urine Mucus FEW (None Seen); Urine Specific Gravity 1.026 (1.001-1.035); Urine WBC 474 /hpf (0 - 5); Urine WBC Clumps PRESENT /hpf (None Seen)
[2022-01-22 14:33] LABS: INR 0.95 (0.9-1.15); Partial Thromboplastin Time 30.5 sec (24.6-33.4)
[2022-01-22 14:37] LABS: Albumin 3.6 g/dL (3.4-5.0); BUN/Creatinine Ratio 15.5; Calcium 9.2 mg/dL (8.5-10.1); Potassium 3.9 mmol/L (3.5-5.1)
[2022-01-22 14:39] LABS: Bilirubin, Total 0.4 mg/dL (0.2-1.0)
== END | disposition home or self-care (01) ==
LOC: LAB 13:57
PROVIDERS: ATTEND Internal Medicine
DX: I50.9 Heart failure, unspecified (principal); R94.39 Abnormal result of other cardiovascular function study; R82.991 Hypocitraturia; R82.90 Unspecified abnormal findings in urine
CPT/HCPCS: 36415; 80053; 81001; 85025; 85610; 85730; 87086

== ENCOUNTER 2022-01-24 07:21 | Day surgery (SDC) | payer MEDICAID ==
[~2022-01-24] VITALS: Ht 157.5 cm; Wt 95.3 kg
[~2022-01-24 07:21] MED LIST changes: -CEPH-322 PO; -DICY10CA12 PO; -GAB100C PO; -METR500T PO
[2022-01-24] MEDS ORDERED: IODIXANOL 320MG/ML 100ML BTL IV ONE ×2 (07:43→10:51)
[2022-01-24] MEDS ORDERED: ANGIOMAX 250 MG VIAL IV ONE (10:25)
[2022-01-24] MEDS ORDERED: fentaNYL CITRATE 100 MCG/2 ML VL ONE (10:25)
[2022-01-24] MEDS ORDERED: HEPARIN SODIUM (PORCINE) 5000 UNITS/ML 1ML VIAL ONE (10:25)
[2022-01-24] MEDS ORDERED: MIDAZOLAM HCL 2MG/2ML 2ml VIAL (1mg/ml) ONE (10:25)
[2022-01-24] MEDS ORDERED: SODIUM CHL 0.9% 0 ML ONE (10:25)
[2022-01-24] MEDS ORDERED: VERAPAMIL 2.5MG/ML INJ 2ML VIAL IV ONE (10:25)
[2022-01-24] MEDS ORDERED: LIDOCAINE 2%HCL (LOCAL ANESTH.) INJ 10ml MDV ONE (10:26)
[2022-01-24 11:11] VITALS: BP 123/88
[2022-01-24 11:26] VITALS: BP 110/70
[2022-01-24 11:41] VITALS: BP 116/75
[2022-01-24 11:56] VITALS: BP 116/75
[2022-01-24 12:26] VITALS: BP 121/74
[2022-01-24 12:56] VITALS: BP 126/73
== END 2022-01-24 13:21 | disposition home or self-care (01) ==
LOC: CATH 07:21
PROVIDERS: ATTEND Internal Medicine
DX: R94.39 Abnormal result of other cardiovascular function study (principal); I25.10 Atherosclerotic heart disease of native coronary artery without angina pectoris; J44.9 Chronic obstructive pulmonary disease, unspecified; Z87.891 Personal history of nicotine dependence; Z20.822 Contact with and (suspected) exposure to COVID-19
CPT/HCPCS: 93458; C1769; C1887; C1894; J1644; J2001; J2250; J3010; J7030; Q9967; U0003; 99152

== ENCOUNTER 2022-02-07 08:08 | Inpatient (IN) | payer MEDICAID ==
[2022-02-05 14:50] LABS: Basophils # (auto) 0.1 10 ^3/uL (0-0.2); Eosinophils # (auto) 0.3 10 ^3/uL (0-0.8); Eosinophils % (auto) 2.7 % (0.0-7.0); Hematocrit 44.8 % (36.0-46.0); Hemoglobin 14.1 g/dL (12.2-16.2); Mean Corpuscular Hgb Conc. 31.5 g/dL (32.0-36.0); Neutrophils # (auto) 7.2 10 ^3/uL (1.6-8.6)
[2022-02-05 14:52] LABS: Basophils % (auto) 0.6 % (0.0-2.0); Lymphocytes # (auto) 2.2 10 ^3/uL (0.4-5.4); Lymphocytes % (auto) 21.3 % (10.0-50.0); Mean Corpuscular Volume 85.6 fL (80.0-100.0); Monocytes # (auto) 0.7 10 ^3/uL (0-1.3); Monocytes % (auto) 6.6 % (0.0-12.0); Neutrophils % (auto) 68.8 % (37.0-80.0); Nucleated Red Blood Cells % 0.1 %; Red Blood Cells 5.24 10^6/uL (4.0-5.20); Red Cell Distribution Width 14.9 % (11.8-14.3); White Blood Cell 10.4 10^3/uL (4.4-10.8)
[2022-02-05 15:05] LABS: Urine Bacteria FEW /hpf (None Seen); Urine Blood Negative /uL (Negative); Urine Mucus FEW (None Seen); Urine Specific Gravity 1.025 (1.001-1.035); Urine WBC 72 /hpf (0 - 5)
[2022-02-05 15:14] LABS: INR 0.95 (0.9-1.15); Partial Thromboplastin Time 29.1 sec (24.6-33.4)
[2022-02-05 15:41] LABS: Albumin 3.6 g/dL (3.4-5.0); Calcium 9.3 mg/dL (8.5-10.1); Potassium 4.2 mmol/L (3.5-5.1)
[2022-02-05 15:45] LABS: BUN/Creatinine Ratio 13.5; Bilirubin, Total 0.5 mg/dL (0.2-1.0); Total Protein 8.1 g/dL (6.4-8.2)
[~2022-02-07] VITALS: Ht 157.5 cm; Wt 108.5 kg
[2022-02-07] MEDS ORDERED: ceFAZolin 1GM/50ML 100 ML IV ONE (09:12)
[2022-02-07] MEDS ORDERED: ONDANSETRON HCL 4 MG/2 ML VIAL ONE (09:32)
[2022-02-07] MEDS ORDERED: MIDAZOLAM HCL 2MG/2ML 2ml VIAL (1mg/ml) ONE (09:32)
[2022-02-07] MEDS ORDERED: GLYCOPYRROLATE 0.2 MG/ML 1ML VIAL ONE (09:32)
[2022-02-07] MEDS ORDERED: fentaNYL CITRATE 100 MCG/2 ML VL ONE ×2 (09:32→11:41)
[2022-02-07] MEDS ORDERED: ROCURONIUM 10MG/ML 10ML VIAL IV ONE (09:32)
[2022-02-07] MEDS ORDERED: NEOSTIGMINE 1 MG/ML INJ (10mg/10ML VIAL) ONE (09:32)
[2022-02-07] MEDS ORDERED: SODIUM CHLORIDE LOCK 10 ML ONE (09:32)
[2022-02-07] MEDS ORDERED: HYDROmorphone HCL 2 MG/ML VL/or syr ONE (09:32)
[2022-02-07] MEDS ORDERED: DexAMETHasone SOD PHOS 10MG/1ML VIAL INJ ONE (09:32)
[2022-02-07] MEDS ORDERED: METOCLOPRAMIDE HCL 5MG/ml INJ 2ml VIAL IV PRN (10:00)
[2022-02-07] MEDS ORDERED: MORPHINE SULFATE 4 MG/ML SYR/VIAL IV PRN (10:00)
[2022-02-07] MEDS ORDERED: fentaNYL CITRATE 100 MCG/2 ML VL IV PRN (10:00)
[2022-02-07] MEDS ORDERED: HYDROmorphone HCL 2 MG/ML VL/or syr IV PRN ×2 (10:00)
[2022-02-07] MEDS ORDERED: SUCCINYLCHOLINE CHLORIDE 20 MG/ML 10ML VIAL IV ONE (10:07)
[2022-02-07] MEDS ORDERED: POVIDONE IODINE 10 % TOPICAL OINT 30GM TOP ONE (12:57)
[2022-02-07] MEDS ORDERED: NITROGLYCERIN 0.4 MG SL TAB SL PRN (13:45)
[2022-02-07] MEDS ORDERED: MORPHINE SULFATE INJ 2 MG/ml SYRG IV PRN (14:00)
[2022-02-07] MEDS: POTASSIUM CHLORIDE 20 MEQ in D5W/LACTATED RINGERS 1,000 ML IV SCH (14:00)
[2022-02-07] MEDS: ceFAZolin 1GM/50ML 50 ML IV SCH ×2 (15:44→22:07)
[2022-02-07] MEDS: LACTATED RINGER'S 1,000 ML IV SCH (15:44)
[2022-02-07] MEDS: MORPHINE SULFATE INJ 2 MG/ml SYRG IV PRN ×2 (16:44→22:08)
[2022-02-07 16:46] VITALS: BP 101/60
[2022-02-07 22:00] VITALS: BP 110/74
[2022-02-07] MEDS: ONDANSETRON HCL 4 MG/2 ML VIAL IV PRN (22:08)
[2022-02-08] MEDS: POTASSIUM CHLORIDE 20 MEQ in D5W/LACTATED RINGERS 1,000 ML IV SCH ×3 (00:06→20:18)
[2022-02-08] MEDS: LACTATED RINGER'S 1,000 ML IV SCH (03:20)
[2022-02-08] MEDS: ONDANSETRON HCL 4 MG/2 ML VIAL IV PRN ×2 (03:32→21:24)
[2022-02-08] MEDS: MORPHINE SULFATE INJ 2 MG/ml SYRG IV PRN ×3 (03:32→13:36)
[2022-02-08 05:00] VITALS: BP 133/85
[2022-02-08] MEDS: ceFAZolin 1GM/50ML 50 ML IV SCH ×3 (06:22→22:20)
[2022-02-08 06:54] LABS: Basophils # (auto) 0.1 10 ^3/uL (0-0.2); Basophils % (auto) 0.3 % (0.0-2.0); Eosinophils # (auto) 0 10 ^3/uL (0-0.8); Hematocrit 41.5 % (36.0-46.0); Hemoglobin 13.3 g/dL (12.2-16.2); Lymphocytes # (auto) 1.8 10 ^3/uL (0.4-5.4); Lymphocytes % (auto) 10.7 % (10.0-50.0); Mean Corpuscular Hemoglobin 27.3 pg (28.0-32.0); Mean Corpuscular Hgb Conc. 32.1 g/dL (32.0-36.0); Monocytes # (auto) 1.2 10 ^3/uL (0-1.3); Monocytes % (auto) 7.2 % (0.0-12.0); Neutrophils % (auto) 81.8 % (37.0-80.0); Red Blood Cells 4.88 10^6/uL (4.0-5.20); Red Cell Distribution Width 14.8 % (11.8-14.3); White Blood Cell 17.1 10^3/uL (4.4-10.8)
[2022-02-08 08:00] VITALS: BP 100/65
[2022-02-08 08:18] LABS: Albumin 2.9 g/dL (3.4-5.0); Calcium 8.3 mg/dL (8.5-10.1); Potassium 3.9 mmol/L (3.5-5.1)
[2022-02-08 08:22] LABS: Bilirubin, Total 0.6 mg/dL (0.2-1.0); Total Protein 6.7 g/dL (6.4-8.2)
[2022-02-08 09:00] VITALS: BP_SYST 100; BP_SYST 101; BP_DIAS 54; BP_DIAS 65
[2022-02-08] MEDS: PANTOPRAZOLE 40 MG/10 ML VIAL INJ IV SCH (09:13)
[2022-02-08 13:31] VITALS: BP 99/61
[2022-02-08] MEDS: HYDROmorphone HCL 2 MG/ML VL/or syr IV PRN ×2 (15:25→21:24)
[2022-02-08 16:46] VITALS: BP 105/71
[2022-02-08 22:00] VITALS: BP 115/67
[2022-02-09] MEDS: HYDROmorphone HCL 2 MG/ML VL/or syr IV PRN ×5 (02:45→20:04)
[2022-02-09] MEDS: ONDANSETRON HCL 4 MG/2 ML VIAL IV PRN ×3 (02:45→20:09)
[2022-02-09 05:00] VITALS: BP 91/55
[2022-02-09 06:01] LABS: Basophils # (auto) 0 10 ^3/uL (0-0.2); Basophils % (auto) 0.3 % (0.0-2.0); Eosinophils # (auto) 0.1 10 ^3/uL (0-0.8); Eosinophils % (auto) 1.2 % (0.0-7.0); Hemoglobin 12.9 g/dL (12.2-16.2); Lymphocytes # (auto) 2.6 10 ^3/uL (0.4-5.4); Lymphocytes % (auto) 24.3 % (10.0-50.0); Mean Corpuscular Hemoglobin 27.2 pg (28.0-32.0); Mean Corpuscular Hgb Conc. 31.5 g/dL (32.0-36.0); Mean Corpuscular Volume 86.3 fL (80.0-100.0); Monocytes % (auto) 9.3 % (0.0-12.0); Neutrophils # (auto) 6.9 10 ^3/uL (1.6-8.6); Neutrophils % (auto) 64.9 % (37.0-80.0); Nucleated Red Blood Cells % 0.1 %; Red Blood Cells 4.75 10^6/uL (4.0-5.20); Red Cell Distribution Width 15.1 % (11.8-14.3); White Blood Cell 10.6 10^3/uL (4.4-10.8)
[2022-02-09] MEDS: ceFAZolin 1GM/50ML 50 ML IV SCH ×3 (06:05→21:50)
[2022-02-09 06:27] LABS: Potassium 3.7 mmol/L (3.5-5.1)
[2022-02-09 06:38] LABS: BUN/Creatinine Ratio 13.6; Calcium 8.3 mg/dL (8.5-10.1)
[2022-02-09] MEDS: POTASSIUM CHLORIDE 20 MEQ in D5W/LACTATED RINGERS 1,000 ML IV SCH (07:20)
[2022-02-09 09:00] VITALS: BP 124/65
[2022-02-09] MEDS: PANTOPRAZOLE 40 MG/10 ML VIAL INJ IV SCH (09:38)
[2022-02-09] MEDS ORDERED: POTASSIUM CHLORIDE 20 MEQ in D5W/LACTATED RINGERS 1,000 ML IV SCH (13:00)
[2022-02-09 13:42] VITALS: BP 99/57
[2022-02-09] MEDS ORDERED: GABAPENTIN 300 MG CAP PO ONE (14:30)
[2022-02-09 17:00] VITALS: BP_SYST 132; BP_SYST 156; BP_DIAS 73; BP_DIAS 92
[2022-02-09] MEDS: GABAPENTIN 300 MG CAP PO SCH (21:50)
[2022-02-09 22:14] VITALS: BP 103/57
[2022-02-10] MEDS: HYDROmorphone HCL 2 MG/ML VL/or syr IV PRN ×6 (00:05→21:13)
[2022-02-10] MEDS: ONDANSETRON HCL 4 MG/2 ML VIAL IV PRN ×2 (04:17→08:48)
[2022-02-10] MEDS: ceFAZolin 1GM/50ML 50 ML IV SCH ×3 (05:46→21:12)
[2022-02-10 08:30] VITALS: BP 111/73
[2022-02-10] MEDS: PANTOPRAZOLE 40 MG TAB PO SCH (08:48)
[2022-02-10] MEDS: GABAPENTIN 300 MG CAP PO SCH ×2 (08:48→21:12)
[2022-02-10] MEDS ORDERED: GABAPENTIN 300 MG CAP PO SCH (10:00)
[2022-02-10 13:10] VITALS: BP 111/60
[2022-02-10 17:00] VITALS: BP 134/94
[2022-02-10 20:00] VITALS: BP 104/55
[2022-02-10 22:00] VITALS: BP 104/55
[2022-02-11] MEDS: HYDROmorphone HCL 2 MG/ML VL/or syr IV PRN ×5 (00:15→19:45)
[2022-02-11 05:00] VITALS: BP 96/45
[2022-02-11] MEDS: ceFAZolin 1GM/50ML 50 ML IV SCH ×3 (05:50→22:30)
[2022-02-11 09:00] VITALS: BP 113/65
[2022-02-11] MEDS: ONDANSETRON HCL 4 MG/2 ML VIAL IV PRN ×3 (09:12→19:45)
[2022-02-11] MEDS: PANTOPRAZOLE 40 MG TAB PO SCH (10:19)
[2022-02-11] MEDS: GABAPENTIN 300 MG CAP PO SCH ×2 (10:19→22:30)
[2022-02-11 13:26] VITALS: BP 123/73
[2022-02-11 17:03] VITALS: BP 120/60
[2022-02-12] MEDS: ONDANSETRON HCL 4 MG/2 ML VIAL IV PRN ×2 (01:48→12:30)
[2022-02-12] MEDS: HYDROmorphone HCL 2 MG/ML VL/or syr IV PRN ×3 (01:48→12:27)
[2022-02-12 05:00] VITALS: BP 153/89
[2022-02-12] MEDS: ceFAZolin 1GM/50ML 50 ML IV SCH (05:34)
[2022-02-12 09:00] VITALS: BP 102/62
[2022-02-12] MEDS: GABAPENTIN 300 MG CAP PO SCH (10:15)
[2022-02-12] MEDS: PANTOPRAZOLE 40 MG TAB PO SCH (10:15)
[2022-02-12] MEDS ORDERED: KETO10TA PO (12:06)
[2022-02-12 13:00] VITALS: BP 141/102
[2022-02-12 13:43] VITALS: BP 102/62
== END 2022-02-12 15:25 | disposition home or self-care (01) | DRG 224 ==
LOC: SUR 08:08 → WEST WING 14:36
PROVIDERS: ADMIT Surgery; ATTEND Internal Medicine
PROC: 0DNE0ZZ Release Large Intestine, Open Approach (ICD-10-PCS; principal; 2022-02-08)
DX: Z43.3 Encounter for attention to colostomy (principal); Z68.41 Body mass index [BMI] 40.0-44.9, adult; E66.01 Morbid (severe) obesity due to excess calories; K66.0 Peritoneal adhesions (postprocedural) (postinfection); M81.0 Age-related osteoporosis without current pathological fracture; N39.0 Urinary tract infection, site not specified; M19.90 Unspecified osteoarthritis, unspecified site; Z20.822 Contact with and (suspected) exposure to COVID-19
CPT/HCPCS: 36415; 80048; 80053; 81001; 85025; 85610; 85730; 86850; 86900; 86901; 97116; 97163; 97530; C9113; G0378; J0330; J0690; J1100; J2250; J2405